=== PATIENT | female | born 1990 | race Caucasian/White ===

== ENCOUNTER 2017-10-20 12:05 | Inpatient (IN) | payer OTHER ==
[~2017-10-20] VITALS: Ht 154.9 cm; Wt 29.5 kg
[2017-10-20 12:35] VITALS: BP 95/66
[2017-10-20 12:45] LABS: APPEARANCE,URINE CLEAR; BILIRUBIN, URINE NEGATIVE (NEGATIVE); COLOR,URINE PALE YELLOW; GLUCOSE, URINE (UA) NEGATIVE (NEGATIVE); KETONES,URINE NEGATIVE (NEGATIVE); LEUKOCYTE ESTERASE ,URINE NEGATIVE (NEGATIVE); NITRITE,URINE NEGATIVE (NEGATIVE); PH,URINE 8 (4.5-8.0); PROTEIN,URINE 2+ (NEGATIVE); UROBILINOGEN,URINE NORMAL (NORMAL)
--- NOTE | 2017-10-20 12:50 | Emergency Room Report ---
History of Present Illness General Chief Complaint: Nausea, Vomiting, and Diarrhea Source: Patient (Gera Ortiz) Present Illness HPI 27-year-old female patient presents ER complaining of nausea vomiting, painful urination. patient is requesting that her labs be drawn, states that she needs her potassium levels to be checked. States she currently takes potassium pills and liquid but has had a "tough time keeping the meds down" secondary to sx. Denies blood in stool or emesis. Patient requesting admission. Patient reports history of gastroparesis, states that she has been vomiting for the past few days. Reports abdominal tenderness secondary to vomiting. Denies chest pain, shortness of breath. Denies fever. Reports diarrhea during this time. Reports last BM today. Denies blood in diarrhea currently. Also complaining of UTI, states that she was treated with antibiotics last week however does not believe antibiotics are currently working. Reports hx of multiple UTIs in the past. Denies hematuria, vaginal discharge. Patient states that she does not want to be treated with any medications, does not take any medications for relief of vomiting or diarrhea symptoms. Denies other past medical history. Reports has had imaging done multiple times previously of her abdomen. (Gera Ortiz) Allergies: Coded Allergies: No Known Allergies (Unverified , 10/20/17) Patient History Past Medical History: see triage record Last Menstrual Period: month ago Reviewed Nursing Documentation: PMH: Agreed; PSxH: Agreed (Gera Ortiz) Nursing Documentation-PMH Past Medical History: No Stated History (Gera Ortiz) Review of Systems All Other Systems: negative except mentioned in HPI (Gera Ortiz) Physical Exam Vital Signs Date Time Temp Pulse Resp B/P (MAP) Pulse Ox O2 Delivery O2 Flow Rate FiO2 10/20/17 12:09 98.2 74 18 95/66 97 Room Air 98.2 Sp02 EP Interpretation: reviewed, normal General Appearance: well appearing, no apparent distress, alert, GCS 15, non- toxic, thin Head: normocephalic, atraumatic Eyes: bilateral eye normal inspection, bilateral eye PERRL ENT: hearing grossly normal, normal pharynx, no angioedema, normal voice, uvula midline, moist mucus membranes Neck: full range of motion Respiratory: lungs clear, normal breath sounds, no rhonchi, no respiratory distress, no accessory muscle use, no wheezing, speaking full sentences Cardiovascular #1: regular rate, rhythm, no edema Gastrointestinal: soft, no mass, non-distended, no guarding, no rebound, tenderness - generalized, other - negative Rovsing, negative Torres Genitourinary: no CVA tenderness Musculoskeletal: back normal, digits/nails normal, gait/station normal, normal range of motion, non-tender Neurologic: alert, oriented x3, responsive, motor strength/tone normal, sensory intact Psychiatric: mood/affect normal (Gera Ortiz.AJessica) Medical Decision Making PA Attestation Dr. Headley is my supervising Physician whom patient management has been discussed with. (Gera Ortiz.AJessica) Medicare Attestation The history of Ceci Espino has been reviewed and management options for her have been examined and discussed by Candy Headley. I have personally examined and interviewed the patient.Patient appears nauseated in acute distress Appears dehydrated requiring further inpatient care (Candy Headley DO) Diagnostic Impression: Primary Impression: Vomiting ER Course Pt. presents to the ED c/o nausea, vomiting, pain with urination, requesting labs to check her potassium levels. multiple differentials considered. Vital signs: are WNL, pt. is afebrile ordered basic labs. ER COURSE: patient declining medications at this time. Patient declining fluids. Patient declining imaging or EKG at this time. Reports hx of imaging previously, always "come back negative". Patient is thin appearing. UA unremarkable, no leukocyte esterase, no nitrites, few bacteria, many epithelial cells, low suspicion for UTI. urine negative. CBC and CMP unremarkable, no elevation in WBC, potassium WNL Discussed results with patient, provided with copy of lab results. Consult with Dr. Headley, patient seen and evaluated by Dr. Headley, patient to be admitted for vomiting and further workup. Patient admitted to Dr. Britton. - Please note that this Emergency Department Report was dictated using [employer]electrical controls technician technology software, occasionally this can lead to erroneous entry secondary to interpretation by the dictation equipment. Labs Test 10/20/17 12:28 10/20/17 12:49 Urine Color Pale yellow Urine Appearance Clear Urine pH 8 (4.5-8.0) Urine Specific [place] 1.010 (1.005-1.035) Urine Protein 2+ (NEGATIVE) Urine Glucose (UA) Negative (NEGATIVE) Urine Ketones Negative (NEGATIVE) Urine Occult Blood Negative (NEGATIVE) Urine Nitrite Negative (NEGATIVE) Urine Bilirubin Negative (NEGATIVE) Urine Urobilinogen Normal MG/DL (NORMAL) Urine Leukocyte Esterase Negative (NEGATIVE) Urine RBC 0-2 /HPF (0 - 2) Urine WBC 2-4 /HPF (0 - 2) Urine Squamous Epithelial Cells Many /LPF (NONE/OCC) Urine Bacteria Few /HPF (NONE) Urine HCG, Qualitative Negative (NEGATIVE) White Blood Count 4.3 K/UL (4.8-10.8) Red Blood Count 3.97 M/UL (4.20-5.40) Hemoglobin 11.0 G/DL (12.0-16.0) Hematocrit 33.8 % (37.0-47.0) Mean Corpuscular Volume 85 FL (80-99) Mean Corpuscular Hemoglobin 27.6 PG (27.0-31.0) Mean Corpuscular Hemoglobin Concent 32.4 G/DL (32.0-36.0) Red Cell Distribution Width 12.5 % (11.6-14.8) Platelet Count 419 K/UL (150-450) Mean Platelet Volume 6.0 FL (6.5-10.1) Neutrophils (%) (Auto) 60.2 % (45.0-75.0) Lymphocytes (%) (Auto) 29.5 % (20.0-45.0) Monocytes (%) (Auto) 8.2 % (1.0-10.0) Eosinophils (%) (Auto) 0.6 % (0.0-3.0) Basophils (%) (Auto) 1.5 % (0.0-2.0) Sodium Level 138 MMOL/L (136-145) Potassium Level 3.9 MMOL/L (3.5-5.1) Chloride Level 101 MMOL/L (98-107) Carbon Dioxide Level 32 MMOL/L (21-32) Anion Gap 5 mmol/L (5-15) Blood Urea Nitrogen 9 mg/dL (7-18) Creatinine 1.1 MG/DL (0.55-1.30) Estimat Glomerular Filtration Rate > 60 mL/min (>60) Glucose Level 105 MG/DL (74-106) Calcium Level 9.0 MG/DL (8.5-10.1) Total Bilirubin 0.8 MG/DL (0.2-1.0) Aspartate Amino Transf (AST/SGOT) 26 U/L (15-37) Alanine Aminotransferase (ALT/SGPT) 20 U/L (12-78) Alkaline Phosphatase 33 U/L (46-116) Total Protein 6.1 G/DL (6.4-8.2) Albumin 3.0 G/DL (3.4-5.0) Globulin 3.1 g/dL Albumin/Globulin Ratio 1.0 (1.0-2.7) Lipase 133 U/L (73-393) (Gera Ortiz P.AJessica) Last Vital Signs Date Time Temp Pulse Resp B/P (MAP) Pulse Ox O2 Delivery O2 Flow Rate FiO2 10/20/17 12:35 98.2 84 18 95/66 97 Room Air 98.2 (Gera Ortiz.[place]) Disposition: ADMITTED INPATIENT Condition: Serious Scripts No Active Prescriptions or Reported Meds Gera Ortiz Oct 20, 2017 12:50 Candy Headley DO Oct 20, 2017 13:34
[2017-10-20 13:02] LABS: BASOPHILS % (AUTO) 1.5 % (0.0-2.0); EOSINOPHILS % (AUTO) 0.6 % (0.0-3.0); HEMATOCRIT 33.8 % (37.0-47.0); LYMPHOCYTES % (AUTO) 29.5 % (20.0-45.0); MEAN CORPUSCULAR VOLUME 85 FL (80-99); MONOCYTES % (AUTO) 8.2 % (1.0-10.0); NEUTROPHILS % (AUTO) 60.2 % (45.0-75.0); PLATELET COUNT 419 K/UL (150-450); RED BLOOD COUNT 3.97 M/UL (4.20-5.40); RED CELL DISTRIBUTION WIDTH 12.5 % (11.6-14.8); WHITE BLOOD COUNT 4.3 K/UL (4.8-10.8)
[2017-10-20 13:16] LABS: ANION GAP 5 mmol/L (5-15); BLOOD UREA NITROGEN 9 mg/dL (7-18); CARBON DIOXIDE 32 MMOL/L (21-32); CHLORIDE 101 MMOL/L (98-107); CREATININE 1.1 MG/DL (0.55-1.30); POTASSIUM 3.9 MMOL/L (3.5-5.1); SODIUM 138 MMOL/L (136-145)
[2017-10-20 13:20] LABS: ALANINE AMINOTRANSFERASE 20 U/L (12-78); ALKALINE PHOSPHATASE 33 U/L (46-116); ASPARTATE AMINO TRANSFERASE 26 U/L (15-37); BILIRUBIN,TOTAL 0.8 MG/DL (0.2-1.0)
[2017-10-20 13:26] VITALS: BP 100/64
[2017-10-20 14:47] VITALS: BP 98/74
[2017-10-20 15:00] VITALS: BP 90/58
--- NOTE | 2017-10-20 15:38 | GI Initial Consult Note ---
History of Present Illness General Date patient seen: Oct 20, 2017 Time patient seen: 15:29 Reason for Hospitalization: Nausea, Vomiting, and Diarrhea Referring physician: DARREL CUMMINGS Reason for Consultation: PERSISTENT VOMITING Present Illness HPI 27-year-old female patient presents ER complaining of nausea vomiting, painful urination. patient is requesting that her labs be drawn, states that she needs her potassium levels to be checked. States she currently takes potassium pills and liquid but has had a "tough time keeping the meds down" secondary to sx. Denies blood in stool or emesis. Patient requesting admission. Patient reports history of gastroparesis, states that she has been vomiting for the past few days. Reports abdominal tenderness secondary to vomiting. Denies chest pain, shortness of breath. Denies fever. Reports diarrhea during this time. Reports last BM today. Denies blood in diarrhea currently. Also complaining of UTI, states that she was treated with antibiotics last week however does not believe antibiotics are currently working. Reports hx of multiple UTIs in the past. Denies hematuria, vaginal discharge. Patient states that she does not want to be treated with any medications, does not take any medications for relief of vomiting or diarrhea symptoms. Denies other past medical history. Reports has had imaging done multiple times previously of her abdomen. GI consulted for persistent vomiting. Pt seen, awake A&Ox4 NAD with no active s /sx of N/V/D or constipation. Per patient, had continuous vomiting the entire day yesterday. Denies any hematemesis or coffee grounds. States she has been vomiting for over 3 days. She states she has history of gastroparesis, has colonic gas pain, esophageal pain and abdominal spasms in which they all referred pain towards her jaw. Patient is currently denying IV access. She states no medications work for her nausea or vomiting and that she's tried them all. Request only to rest at this moment. No history of endoscopy / colonoscopy. Home Meds No Active Prescriptions or Reported Meds Med list reviewed/reconciled: Yes Allergies: Coded Allergies: No Known Allergies (Unverified , 10/20/17) Patient History History Provided By: Patient, Medical Record PMH Narrative Denies any significant medical history. Past Surgical History: none Review of Systems All Other Systems: negative except mentioned in HPI Physical Exam Vital Signs Date Time Temp Pulse Resp B/P (MAP) Pulse Ox O2 Delivery O2 Flow Rate FiO2 8/7/18 12:09 98.2 74 18 95/66 97 Room Air 98.2 Sp02 EP Interpretation: reviewed, normal Labs Laboratory Tests Test 10/20/17 12:28 10/20/17 12:49 Urine Color Pale yellow Urine Appearance Clear Urine pH 8 (4.5-8.0) Urine Specific [place] 1.010 (1.005-1.035) Urine Protein 2+ (NEGATIVE) H Urine Glucose (UA) Negative (NEGATIVE) Urine Ketones Negative (NEGATIVE) Urine Occult Blood Negative (NEGATIVE) Urine Nitrite Negative (NEGATIVE) Urine Bilirubin Negative (NEGATIVE) Urine Urobilinogen Normal MG/DL (NORMAL) Urine Leukocyte Esterase Negative (NEGATIVE) Urine RBC 0-2 /HPF (0 - 2) Urine WBC 2-4 /HPF (0 - 2) Urine Squamous Epithelial Cells Many /LPF (NONE/OCC) H Urine Bacteria Few /HPF (NONE) Urine HCG, Qualitative Negative (NEGATIVE) White Blood Count 4.3 K/UL (4.8-10.8) L Red Blood Count 3.97 M/UL (4.20-5.40) L Hemoglobin 11.0 G/DL (12.0-16.0) L Hematocrit 33.8 % (37.0-47.0) L Mean Corpuscular Volume 85 FL (80-99) Mean Corpuscular Hemoglobin 27.6 PG (27.0-31.0) Mean Corpuscular Hemoglobin Concent 32.4 G/DL (32.0-36.0) Red Cell Distribution Width 12.5 % (11.6-14.8) Platelet Count 419 K/UL (150-450) Mean Platelet Volume 6.0 FL (6.5-10.1) L Neutrophils (%) (Auto) 60.2 % (45.0-75.0) Lymphocytes (%) (Auto) 29.5 % (20.0-45.0) Monocytes (%) (Auto) 8.2 % (1.0-10.0) Eosinophils (%) (Auto) 0.6 % (0.0-3.0) Basophils (%) (Auto) 1.5 % (0.0-2.0) Sodium Level 138 MMOL/L (136-145) Potassium Level 3.9 MMOL/L (3.5-5.1) Chloride Level 101 MMOL/L (98-107) Carbon Dioxide Level 32 MMOL/L (21-32) Anion Gap 5 mmol/L (5-15) Blood Urea Nitrogen 9 mg/dL (7-18) Creatinine 1.1 MG/DL (0.55-1.30) Estimat Glomerular Filtration Rate > 60 mL/min (>60) Glucose Level 105 MG/DL (74-106) Calcium Level 9.0 MG/DL (8.5-10.1) Total Bilirubin 0.8 MG/DL (0.2-1.0) Aspartate Amino Transf (AST/SGOT) 26 U/L (15-37) Alanine Aminotransferase (ALT/SGPT) 20 U/L (12-78) Alkaline Phosphatase 33 U/L (46-116) L Total Protein 6.1 G/DL (6.4-8.2) L Albumin 3.0 G/DL (3.4-5.0) L Globulin 3.1 g/dL Albumin/Globulin Ratio 1.0 (1.0-2.7) Lipase 133 U/L (73-393) General Appearance: well appearing, no apparent distress, alert Head: normocephalic EENT: PERRL/EOMI, normal ENT inspection Neck: supple Respiratory: normal breath sounds, no respiratory distress Cardiovascular: normal rate Gastrointestinal: normal inspection, non tender, soft, normal bowel sounds, non -distended Rectal: deferred Genitourinary: no CVA tenderness Musculoskeletal: normal inspection, back normal Neurologic: normal inspection, alert, oriented x3, responsive Psychiatric: normal inspection, judgement/insight normal, memory normal Skin: normal inspection, normal color, no rash, warm/dry, palpation normal, well hydrated Lymphatic: normal inspection, no adenopathy GI: Plan Problems: (1) Severe malnutrition (2) Dehydration (3) Anorexia (4) Abdominal pain (5) Vomiting Plan recommend pysch consultation given anorexia refusing IV access symptomatic treatment adv to regular diet, PO hydration RD consult anemia work up OB stool r/o GI bleed monitor H&H, prn transfusions bowel regime pepcid zofran prn tylenol prn for pain electrolyte correction fu labs, drug tox Discussed with Dr. Mckeon. Thank you for this patient referral, we will follow. The patient was seen and examined at bedside and all new and available data was reviewed in the patients chart. I agree with the above findings, impression and plan. (Patient seen earlier today. Signature stamp does not reflect patient encounter time.). - Jose Mckeon MD . Axel Kang NP Oct 20, 2017 15:38
--- NOTE | 2017-10-21 13:54 | Discharge Summary ---
Discharge Summary Discharge Summary _ DATE OF ADMISSION: 10/20/2017 DATE OF DISCHARGE: 10/20/2017. Patient signed AMA. REASON FOR ADMISSION: 27 years old female with history of gastroparesis, presented to emergency department complaining of nausea, vomiting, and painful urination. Patient appeared to be very thin , probably malnourished. Patient requested her labs to be drawn. She wanted to check potassium level. Patient reported taking potassium pills but was unable keeping the medication down secondary to symptoms. She denied blood in stool or emesis. No chest pain or shortness of breath. She denied fever chills . She reported diarrhea during this time. Last bowel movement today. No blood in stool. i Patient also complaining of painful urination . She was treated with antibiotic last week. She reported history of multiply UTI She denied hematuria, vaginal discharge. Patient stated that she did not want to be treated with any medication . She also reported that she did not take any medications for relief of vomiting or diarrhea. Patient reported having multiply images in the hospital previously for her abdominal issues. Upon evaluation vital signs were stable. No leukocytosis, mild anemia with hemoglobin 11 hematocrit 33.8 Potassium 3.9 Stable electrolytes , renal parameters, LFT, lipase. Urinalysis without evidence of UTI. Urine test was negative. Patient admitted with diagnoses of dehydration severe malnutrition, vomiting , anemia . CONSULTANTS: GI specialist Dr. Mckeon [facility] COURSE: Patient admitted to Medical Surgical floor. Patient started on IV fluids. Symptomatic treatment was provided. GI evaluation was requested. Patient declined IV access. Registered dietitian consult was requested. Anemia workup along with stool for occult blood were ordered. Hemoglobin and hematocrit were closely monitored with goal to keep hemoglobin above 7. Bowel regimen instituted. Patient started on PPI. Antiemetics provided as needed. Renal parameters and electrolytes were closely monitored , electrolytes corrected as needed. Pain management was addressed with Tylenol. Psych evaluation was requested secondary to anorexia. The same day patient decided to sign AGAINST MEDICAL ADVICE. The risks and consequences of signing AGAINST MEDICAL ADVICE were discussed with patient in detail. Patient verbalized understanding, nevertheless signed AMA form and left. FINAL DIAGNOSES: Dehydration Anorexia Severe malnutrition Anemia Vomiting I have been assigned to dictate discharge summary for this account. I was not involved in the patient's management. Genevieve Melara NP Oct 21, 2017 13:54
--- NOTE | 2017-10-22 01:15 | History and Physical Report ---
DATE OF ADMISSION: 10/20/2017 "NOTE: POOR AUDIO QUALITY" HISTORY: Since the patient has left against medical advice before I could see her, I cannot dictate a complete history and physical. the patient left early in the morning the night before. Early in the morning, the patient left. They informed me after the patient left. So, the nurse informed me after the patient had left that the patient has gone against medical advice. The patient was only in the hospital for a couple hours and decided to go against medical advice and again, I cannot dictate for this patient because the patient left AMA. The reason for admission was for persistent vomiting, dehydration, and since the patient left before could be seen by me. Candy Patton M.D. DR: KARL JOB#: [id number] CC:
== END 2017-10-20 19:30 | disposition left against medical advice (07) | DRG 640 ==
LOC: EMR 12:50 → 3E 13:11 → EDBEDREQ 13:29
DX: E86.0 Dehydration (principal); E43 Unspecified severe protein-calorie malnutrition; Z68.1 Body mass index [BMI] 19.9 or less, adult; R63.0 Anorexia; D64.9 Anemia, unspecified; R11.2 Nausea with vomiting, unspecified
CPT/HCPCS: 36415; 80053; 80307; 81003; 81025; 83690; 85025